=== PATIENT | male | born 2005 | race Caucasian/White ===

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

== ENCOUNTER 2023-07-02 13:11 | Outpatient (CLI) | payer BC, SELFPAY ==
--- NOTE | ~2023-07-02 | XR_ITS ---
Clinical Indication: Chronic cough PA and lateral views of the chest: Comparison: None Findings: The lungs are clear, without evidence of focal consolidation or pleural effusion. Cardiome diastinal silhouette is within normal limits. Bones and soft tissues are unremarkable. Impression: Normal chest. Reviewed, dictated and finalized at location . Impression: Normal chest.
== END 2023-07-02 13:12 ==
PROVIDERS: PCP Physician Assistant Medical; Visit Provider Physician Assistant Medical
DX: R05.3 Chronic cough (principal)
CPT/HCPCS: 71046

== ENCOUNTER 2024-12-27 12:22 | Emergency (ER) | payer BC, SELFPAY ==
--- NOTE | 2024-12-27 12:27 | ED_ITS ---
HPI - General Adult General Chief complaint: Chest Pain Stated complaint: high blood pressure Time Seen by Provider: 12/27/24 12:37 Mode of arrival: ambulatory Limitations: no limitations History of Present Illness HPI narrative: 19-year-old male presents with concern for chest tightness that he noticed today. He denies any injury or trauma. He denies exacerbating or relieving factors. He does express concern that when he gets his blood pressure checked over the last 8-9 months it has been in the 130s systolic. He was concerned that the symptoms could be related. He denies any shortness of breath, chest pain with exertion, pain with range of motion. Patient reports a history of anxiety, reports he does have panic attacks where he has chest pressure, he is not having a full-blown panic attack at this point. He is on medication for anxiety. MD complaint: Chest tightness Related Data Allergies Allergy/AdvReac Type Severity Reaction Status Date / Time No Known Allergies Allergy Mild Verified 12/27/24 12:31 Review of Systems Review of Systems: CONSTITUTIONAL: Denies malaise, chills, sweats, or fever. ENT: Denies rhinorrhea, congestion, sinus pain, otalgia or sore throat. CARDIOVASCULAR: Denies chest pain, palpitations, or edema. Reports chest pressure RESPIRATORY: Denies cough or dyspnea. SKIN: Denies rash or itching. MUSCULOSKELETAL: Denies back pain, joint pain, or myalgia. NEUROLOGIC: Denies numbness, weakness PSYCHIATRIC: Reports history of anxiety All systems reviewed & are unremarkable except as noted in HPI and below PMFSH Past Medical History Medical History (Updated 12/27/24 @ 12:53 by Tawana Meehan NP) Anxiety Achilles tendinitis Family History Family History Mother No problems noted. Social History Social History Smoking status: Never smoker Second hand tobacco smoke exposure: No Alcohol intake: never Substance use: never Substance use type: does not use Lack of Transportation: No Lack of Food: Never True Current Housing: I Have Housing Concerned About Future Housing: No Difficulty Paying Gas/Electric Bills: No Difficulty Paying for Meds: No Currently Unemployed: No Education: High School Diploma/GED Difficulty w/ Childcare or Family Care: No Living arrangements: with family Occupation/Education: student Gender identity (if verbalized by the patient): Male Spiritual care concerns: No Agree to blood products: Yes Comments At time of signature, agree with nursing past medical, surgical, social and family history. There is no relevant family history pertinent to the presenting complaint Exam Narrative: GENERAL: Well-appearing, well-nourished, and in no acute distress. HEAD: Normocephalic, atraumatic. EYES: PERRLA, sclera clear, and EOMI. No nystagmus. ENT: Nares clear, no rhinorrhea or epistaxis. Mucous membranes moist. NECK: Supple. No lymphadenopathy. CHEST: No respiratory distress. Clear to auscultation. No bony deformities, no asymmetry. Speaks in full sentences. HEART: Regular rate and rhythm. No murmur heard. Normal peripheral pulses. ABDOMEN: Soft, nontender, nondistended, normal active bowel sounds, no palpable masses. EXTREMITIES: Normal range of motion. No edema. Normal strength and sensation. SKIN: Warm, dry, no visible rash. NEURO: Alert and oriented x3. PSYCH: Normal mood and affect Course Course Emergency Course: Patient is aware of diagnosis, understands and agrees to treatment plan. Anticipatory guidance given. Patient agrees to follow-up as directed and is aware of reasons to seek care at the emergency department. Portions of this record may have been created with voice recognition software Level of Care: Express Care Visit Vital Signs Vital signs: Vital Signs Temperature 97.8 F 12/27/24 12:31 Pulse Rate 65 12/27/24 12:31 Respiratory Rate 18 12/27/24 12:31 Blood Pressure 136/78 12/27/24 12:31 Pulse Oximetry 100 12/27/24 12:31 Oxygen Delivery Room Air 12/27/24 12:31 Temperature 97.8 F 12/27/24 12:31 Pulse Rate 65 12/27/24 12:31 Respiratory Rate 18 12/27/24 12:31 Blood Pressure 136/78 12/27/24 12:31 Pulse Oximetry 100 12/27/24 12:31 Oxygen Delivery Room Air 12/27/24 12:31 Reviewed. Medical Decision Making MDM Narrative Medical decision making narrative: The patient was evaluated by myself in the express care. History is obtained from patient who is an independent historian and physical exam was performed.? Available medical records were reviewed at this time. ? Exam findings show no acute concerns or changes; patient is non-toxic appearing and is in no distress. Patient is appropriate for outpatient treatment and follow-up. ? I have evaluated and discussed social determinants of health with the patient that could potentially impact subsequent diagnosis and treatment plans. Exam findings are unremarkable, patient was referred to primary care doctor for discussion of his blood pressure ? Differential diagnosis and treatment plan were discussed with the patient. Patient agrees with discussion and after shared medical decision making agrees with plan of care. All questions were answered to the patient's satisfaction. Vital Signs Vital Signs: Vital Signs Temperature 97.8 F 12/27/24 12:31 Pulse Rate 65 12/27/24 12:31 Respiratory Rate 18 12/27/24 12:31 Blood Pressure 136/78 12/27/24 12:31 Pulse Oximetry 100 12/27/24 12:31 Oxygen Delivery Room Air 12/27/24 12:31 Temperature 97.8 F 12/27/24 12:31 Pulse Rate 65 12/27/24 12:31 Respiratory Rate 18 12/27/24 12:31 Blood Pressure 136/78 12/27/24 12:31 Pulse Oximetry 100 12/27/24 12:31 Oxygen Delivery Room Air 12/27/24 12:31 Critical Care Time Critical Care Time Critical Care Time: No Discharge Plan Discharge Clinical Impression: Chest wall pain Patient Disposition: Home Condition: Stable Instructions: Chest Wall Pain (ED) Additional Instructions: 1) Please follow-up with your primary care doctor. 2) If you have any worsening of symptoms or any other urgent concerns please go to the ER. 3) Please take ibuprofen as needed for chest wall pain, continue taking your home medications as usual. 4) Please read and follow information included in discharge instructions. Patient Language: [place] Prescriptions: No Action cetirizine [Zyrtec] 10 mg tablet 10 mg PO DAILY PRN (Reason: congestion) Qty: 30 0RF fluticasone propionate [Flonase Allergy Relief] 50 mcg/actuation spray,suspension 1 spray intranasal DAILY PRN (Reason: allergy symptoms) Qty: 16 0RF Rx Instructions: administer into each nostril montelukast 10 mg tablet 10 mg PO QHS Qty: 30 6RF buspirone 5 mg tablet 5 mg PO BID Qty: 180 1RF venlafaxine 75 mg capsule,extended release 24hr 75 mg PO DAILY Qty: 90 1RF Follow-up/Referrals: Crystal Fernandes MD [Primary Care Provider, [facility]] Chevy Mcghee APRN [Advanced Practice Nurse, [facility]] Referral Note: Patient is concerned that his blood pressure has been in the 130's for several months. Time of Disposition: 12:52
[2024-12-27 12:31] VITALS: BP 136/78; PULSE 65; RESP 18; TEMP 36.6; O2SAT 100
--- OUTSIDE RECORDS SUMMARY | 2024-12-27 15:02 | XMS_ITS | Clinical Summary ---
Author Organization [facility] Address [address] [place] [address] Phone Care Team Providers Care Orthopedic Physician Assistant Name Role Phone Crystal Fernandes MD Primary Care Provider [phone] Social History Tobacco Use Types Packs/Day Years Used Date Smoking Tobacco: Never Assessed Sex and Gender Information Value Date Recorded Sex Assigned at Not on file Legal Sex Male 9:58 AM CDT Gender Identity Not on file Sexual Orientation Not on file Plan of Treatment Health Maintenance Due Date Last Done Comments Hepatitis C Virus (HCV) Screening 2003 Human Papillomavirus (HPV) Immunization (1 - Male 3-dose series) 2018 Meningococcal B Immunization (1 of 2 - Standard) 2019 Hepatitis B Immunization (1 of 3 - 19+ 3-dose series) 2022 Influenza Immunization (#1) 11/07/202412/08, 04/14/2019, 12/21/2016, Additional history exists SARS-COV-2 Immunization ( - 2024- season) 2024 07/02/2020, 06/11/2020 Respiratory Syncytial Virus (RSV) Immunization (Adult) (1 - 1-dose 75+ series) 2078 DTaP/Tdap/Td Immunization Discontinued 10/16/2014 TdaP Immunization Completed 10/16/2014 Meningococcal Immunization (ACWY) Completed 10/10/2020, 10/16/2014 Pneumococcal Immunization Combined Aged Out No longer eligible based on patient's age to complete this topic Rotavirus Immunization Aged Out No lo nger eligible based on patient's age to complete this topic [place] [address] [place] [address] Care Teams Orthopedic Physician Assistant Relationship Specialty Start Date End Date Crystal Fernandes MD [address] [place] [address] PCP - General Family Medicine 01/01/22
--- OUTSIDE RECORDS SUMMARY | 2024-12-27 15:02 | XMS_ITS | Clinical Summary ---
Author Organization [facility] Address [address] [place] [address] Care Team Providers Care Editing Clerk Name Role Phone Crystal Fernandes MD Primary Care Provider [phone] Source Comments [facility],non-owned Affiliates and Associated Physician Practices is amultiple site organization consisting of ambulatory clinics and hospital sitesin [place], [place], [place] and [place]. This disclosure is being madepursuant to the Care Everywhere program and may not contain all information available regarding this patient. Last updated 17.[employer] [facility] Allergies No known active allergies Medications * Be aware that medications may not be up to date on this document. Alwaysverify current medications with the patient. No known medications Immunizations Immunization Administration Dates Next Due INFLUENZA VACCINE, QUADR. (F LUZONE; FLULAVAL; FLUARIX; AFLURIA QUADRIVALENT; 6MO+), 0.5 ML (IIV4) 12/21/2016 Social History Tobacco Use Types Packs/Day Years Used Date Smoking Tobacco: Never Smokeless Tobacco: Never Sex and Gender Information Value Date Recorded Sex Assigned at Not on file Legal Sex Male 3:15 PM CDT Gender Identity Not on file Sexual Orientation Not on file Last Filed Vital Signs Vital Sign Reading Time Taken Comments Blood Pressure 102/60 12/01/2016 9:25 AM CDT Pulse 50 12/01/2016 9:25 AM CDT Temperature 36.9 C (98.4 F) 12/01/2016 9:25 AM CDT Respiratory Rate 16 12/01/2016 9:25 AM CDT Oxygen Saturation 98% 12/01/2016 9:25 AM CDT Inhaled Oxygen Concentration - - Weight 45.8 kg (101 lb) 12/01/2016 9:25 AM CDT Height 157.5 cm (5' 2) 12/01/2016 9:25 AM CDT Body Mass Index 18.47 12/01/2016 9:25 AM CDT Plan of Treatment Health Maintenance Due Date Last Done Comments HIV SCREENING 2018 HPV VACCINE (1 - Male 3-dose series) 2018 MENINGOCOCCAL (Group B) VACC INE SHARED DECISION-MAKING (1 of 2 - Standard) 2019 HEPATITIS C SCREENING 03/26/2021 DTAP/TDAP/TD VACCINES (1 - Tdap) 2022 HEPATITIS B VACCINE (1 of 3 - 19+ 3-dose series) 2022 DEPRESSION SCREENING 03/09/2024 COVID-19 VACCINE (1 - 2023-2 5 season) 2024 INFLUENZA VACCINE (#1) 2024 12/21/2016 ZOSTER VACCINE (1 of 2) 2053 HIB VACCINE Aged Out No longer eligi ble based on patient's age to complete this topic MENINGOCOCCAL GROUPS A/C/Y/W VACCINE Aged Out No longer eligible b ased on patient's age to complete this topic PNEUMOCOCCAL VACCINE Aged Out No long er eligible based on patient's age to complete this topic Insurance [place] [address] [facility] Care Teams Editing Clerk Relationship Specialty Start Date End Date Crystal Fernandes MD [address] [place] [address] PCP - General Family Medicine 12/01/16
== END 2024-12-27 12:55 | disposition home or self-care (01) ==
PROVIDERS: Emergency Provider Nurse Practitioner; PCP Family Medicine
DX: R07.89 Other chest pain (principal); Z79.899 Other long term (current) drug therapy
CPT/HCPCS: 99213; G0463